=== PATIENT | male | born 1990 | race African-American/Black ===

== ENCOUNTER 2022-12-16 19:21 | Emergency (ER) | payer OTHER, SELFPAY ==
[2022-12-16 19:35] VITALS: BP 143/72; PULSE 66; RESP 16; TEMP 36.7; O2SAT 99
--- NOTE | 2022-12-16 20:21 | ED.WOUNDLAC ---
HPI - Wound/Laceration General Chief Complaint: Wound/Laceration Stated Complaint: right hand lac on ring finger Time Seen by Provider: 12/16/22 19:40 Source: patient, family, RN notes reviewed and old records reviewed Mode of arrival: ambulatory Limitations: no limitations History of Present Illness HPI narrative: 33ing finger at 2 year old male accompanied by significant other presents to express care with complaints of laceration to the right dorsal ring finger which occurred today at 1500 while cutting sheet metal. Patient reports that he has not been able to get bleeding to stop, has large bulky dressing in place. Patient reports that his tetanus is not up to date. Patient has full mobility to his right ring finger with no injury to nail. Onset (ago): hour(s) (at 1500 today) Extremity Location: Right: hand (right dorsal ring finger) Patient tetanus UTD: No Treatments prior to arrival: bandage Related Data Allergies Allergy/AdvReac Type Severity Reaction Status Date / Time shellfish derived Allergy Swelling Verified 12/16/22 19:51 Review of Systems Review of Systems: CONSTITUTIONAL: Denies fever, chills, or sweats. EYES: Denies visual changes, redness, or discharge. ENT: Denies rhinorrhea, congestion, sore throat, or otalgia. CARDIOVASCULAR: Denies chest pain, palpitations, or edema. RESPIRATORY: Denies cough or dyspnea. GASTROINTESTINAL: Denies abdominal pain, nausea, vomiting, or diarrhea. GENITOURINARY: Denies dysuria or hematuria. SKIN: Denies rash or itching.Laceration to dorsal right ring finger along DIP area MUSCULOSKELETAL: Denies back pain, joint pain, or myalgia NEUROLOGIC: Denies headache, numbness, or weakness. PSYCHIATRIC: Denies anxiety or depression. All systems reviewed & are unremarkable except as noted in HPI and below PMFSH Social History Social History (Updated 12/17/22 @ 08:10 by Serene Sorensen NP) Smoking status: Never smoker Living arrangements: with family Gender identity (if verbalized by the patient): Male Comments At time of signature, agree with nursing past medical, surgical, social and family history. There is no relevant family history pertinent to the presenting complaint Exam Narrative: GENERAL: Well-appearing, well-nourished, and in no acute distress. HEAD: Normocephalic, atraumatic. EYES: PERRLA and EOMI. ENT: Nares clear, no rhinorrhea or epistaxis. Mucous membranes moist.TM's normal throat pink with no swelling NECK: Supple. no lymphadenopathy CHEST: Clear to auscultation. No respiratory distress.SAO2 99% on room air HEART: Regular rate and rhythm. No murmur heard. Normal peripheral pulses. ABDOMEN: Soft, nontender, nondistended, normal active bowel sounds. EXTREMITIES: Normal range of motion. No edema SKIN: Warm, dry, no rash. 1.5 cm laceration to the dorsal right ring finger along area of DIP, patient has full movement of his finger with circulation and sensation intact NEURO: No focal deficits. Alert and oriented x3. Course Course Emergency Course: Patient is aware of diagnosis, understands and agrees to treatment plan.? Anticipatory guidance given.? Patient agrees to follow-up as directed and is aware of reasons to seek care at the emergency department. Portions of this record may have been created with voice recognition software Level of Care: Express Care Visit Vital Signs Vital signs: Vital Signs Temperature 36.7 C 12/16/22 19:35 Pulse Rate 66 12/16/22 19:35 Respiratory Rate 16 12/16/22 19:35 Blood Pressure 143/72 H 12/16/22 19:35 Pulse Oximetry 99 12/16/22 19:35 Oxygen Delivery Room Air 12/16/22 19:35 Temperature 36.7 C 12/16/22 19:35 Pulse Rate 66 12/16/22 19:35 Respiratory Rate 16 12/16/22 19:35 Blood Pressure 143/72 H 12/16/22 19:35 Pulse Oximetry 99 12/16/22 19:35 Oxygen Delivery Room Air 12/16/22 19:35 Reviewed Procedures Laceration right ring finger dorsal aspect: Date: 12/16/22 Time: 20:2
[2022-12-16] MEDS: TETANUS,DIPHTHERIA,AC PERTUSSIS ADULT (0.5 ML) BOOSTRIX IM (20:31)
== END 2022-12-16 20:55 | disposition home or self-care (01) ==
PROVIDERS: Emergency Provider Registered Nurse; PCP Emergency Medicine
DX: S61.214A Laceration without foreign body of right ring finger without damage to nail, initial encounter (principal); W26.8XXA Contact with other sharp object(s), not elsewhere classified, initial encounter; Z23 Encounter for immunization
CPT/HCPCS: 12001; 90471; 90715; 99213; G0463

== ENCOUNTER 2022-12-27 12:52 | Emergency (ER) | payer OTHER, SELFPAY ==
[2022-12-27 12:56] VITALS: BP 118/81; PULSE 61; RESP 16; TEMP 36.7; O2SAT 100
--- NOTE | 2022-12-27 13:19 | ED.WOUNDLAC ---
HPI - Wound/Laceration General Chief Complaint: Wound/Laceration Stated Complaint: Suture Removal Time Seen by Provider: 12/27/22 13:19 History of Present Illness HPI narrative: PATIENT HERE FOR SUTURE REMOVAL. PATIENT STATES STITCHES WERE PLACED 7 DAYS AGO AND WAS INSTRUCTED TO RETURN IN 5-7 DAYS FOR STITCH REMOVAL. EDGES WELL-APPROXIMATED NO CONCERN FOR INFECTION Related Data Home Medications Medication Instructions Recorded Confirmed No Home Medications 12/27/22 12/27/22 Allergies Allergy/AdvReac Type Severity Reaction Status Date / Time shellfish derived Allergy Swelling Verified 12/16/22 19:51 Review of Systems Review of Systems: CONSTITUTIONAL: DENIES FEVER, CHILLS, OR SWEATS. EYES: DENIES VISUAL CHANGES, REDNESS, OR DISCHARGE. ENT: DENIES RHINORRHEA, CONGESTION, SORE THROAT, OR OTALGIA. CARDIOVASCULAR: DENIES CHEST PAIN, PALPITATIONS, OR EDEMA. RESPIRATORY: DENIES COUGH OR DYSPNEA. GASTROINTESTINAL: DENIES ABDOMINAL PAIN, NAUSEA, VOMITING, OR DIARRHEA. GENITOURINARY: DENIES DYSURIA OR HEMATURIA. SKIN: DENIES RASH OR ITCHING. MUSCULOSKELETAL: DENIES BACK PAIN, JOINT PAIN, OR MYALGIA. NEUROLOGIC: DENIES HEADACHE, NUMBNESS, OR WEAKNESS. PSYCHIATRIC: DENIES ANXIETY OR DEPRESSION. [facility] Social History Social History (Updated 12/17/22 @ 08:10 by Serene Sorensen NP) Smoking status: Never smoker Living arrangements: with family Gender identity (if verbalized by the patient): Male Comments AT TIME OF SIGNATURE, AGREE WITH NURSING PAST MEDICAL, SURGICAL, SOCIAL AND FAMILY HISTORY. THERE IS NO RELEVANT FAMILY HISTORY PERTINENT TO THE PRESENTING COMPLAINT Exam Narrative: GENERAL: WELL-APPEARING, WELL-NOURISHED, AND IN NO ACUTE DISTRESS. HEAD: NORMOCEPHALIC, ATRAUMATIC. EYES: PERRLA AND EOMI. ENT: NARES CLEAR, NO RHINORRHEA OR EPISTAXIS. MUCOUS MEMBRANES MOIST. NECK: SUPPLE. CHEST: CLEAR TO AUSCULTATION. NO RESPIRATORY DISTRESS. HEART: REGULAR RATE AND RHYTHM. NO MURMUR HEARD. NORMAL PERIPHERAL PULSES. ABDOMEN: SOFT, NONTENDER, NONDISTENDED, NORMAL ACTIVE BOWEL SOUNDS. EXTREMITIES: NORMAL RANGE OF MOTION. NO EDEMA. HAND EXAM - SKIN INTACT, , NO SWELLING, NO ERYTHEMA, NORMAL DIGIT CASCADE WITH FLEXION OF FINGERS, MEDIAN NERVE, ULNAR NERVE, RADIAL NERVE IS INTACT. NORMAL SENSATION OF EACH SIDE OF EACH FINGER, CAN PERFORM `OK? SIGN, `CROSS OVER FINGER TEST OF INDEX AND MIDDLE FINGERS? AND `THUMBS UP? SIGN, NORMAL THUMB OPPOSITION, NO SCISSORING. GOOD CAPILLARY REFILL AND RADIAL PULSE. NORMAL FLEXION AND EXTENSION OF FINGERS AND WRIST. NORMAL SUPINATION AT WRIST. NORMAL FOREARM AND ELBOW EXAM. SKIN: WARM, DRY, NO RASH. NEURO: NO FOCAL DEFICITS. ALERT AND ORIENTED X3. MICHELL COMA SCALE EYE OPENING: SPONTANEOUS 4 MICHELL COMA SCALE MOTOR: OBEYS COMMANDS 6 MICHELL COMA SCALE VERBAL: ORIENTED 5 MICHELL COMA SCALE TOTAL 15 Course Course Level of Care: Express Care Visit Vital Signs Vital signs: Vital Signs Temperature 36.7 C 12/27/22 12:56 Pulse Rate 61 12/27/22 12:56 Respiratory Rate 16 12/27/22 12:56 Blood Pressure 118/81 12/27/22 12:56 Pulse Oximetry 100 12/27/22 12:56 Oxygen Delivery Room Air 12/27/22 12:56 Temperature 36.7 C 12/27/22 12:56 Pulse Rate 61 12/27/22 12:56 Respiratory Rate 16 12/27/22 12:56 Blood Pressure 118/81 12/27/22 12:56 Pulse Oximetry 100 12/27/22 12:56 Oxygen Delivery Room Air 12/27/22 12:56 Procedures Other Procedure Procedure 1: Other Procedure: SUTURE REMOVAL 5 SUTURES INTACT TO RIGHT RING FINGER EDGES WELL APPROXIMATED NO REDNESS NO EDEMA NO CONCERN FOR INFECTION SUTURES REMOVED WITHOUT INCIDENT PATIENT TOLERATED WELL BAND-AID APPLIED Discharge Plan Discharge Clinical Impression: Encounter for removal of sutures Patient Disposition: Home, Self-Care Condition: Stable Instructions: Stitches Removal (ED) Additional Instructions: APPLY NEOSPORIN OR BACITRACIN DISCUSSED MONITOR FOR ANY SIGNS OR
== END 2022-12-27 13:25 | disposition home or self-care (01) ==
PROVIDERS: Emergency Provider Nurse Practitioner Family
DX: S61.214D Laceration without foreign body of right ring finger without damage to nail, subsequent encounter (principal); X58.XXXD Exposure to other specified factors, subsequent encounter
CPT/HCPCS: 99211; G0463